=== PATIENT | male | born 1945 | race Caucasian/White ===

== ENCOUNTER → 2020-09-23 | Outpatient (CLI) | payer OTHER ==
[~2020-09-23] VITALS: Ht 180.3 cm; Wt 77.1 kg
[~2020-09-23] MED LIST: ASPIR-TRIN325 MG PO; FLOMAX0.4 MG PO; IRON240 M1 PO; LAMOTRIGINE200 MG PO; MULTI VITAMIN1 EACH PO; XANAX1 MG PO
--- NOTE | 2020-09-24 11:11 | P ---
[facility] [place] [address] PROCEDURE REPORT Name: NOAH LYONS Room #: REG [facility].#: [id number] Admission: 09/23/20 Attend Phys: Dougie Garnett Discharge: Date of : 43 Report #: [id number] THIS REPORT FOR: cc: Christos Cardenas MD, Brian G. MD McElhinney, Christian C. MD ~ DOC #: [id number] cc: Christos Dotson MD DATE OF SERVICE: 09/23/2020 PROCEDURES PERFORMED: Colonoscopy with polypectomies. HISTORY OF PRESENT ILLNESS: The patient is a 74-year-old male with a history of colon polyps 5 years ago, multiple polyps, he also has a family history of colon cancer and a son. Plan is for repeat colonoscopy. DESCRIPTION OF PROCEDURE: The risks and benefits of the procedure were explained to the patient, those risks including but not limited to bleeding, perforation and the risk of sedation. He understood these risks and gave informed consent. Sedation was given using propofol per anesthesia. Next, digital rectal exam was initially performed, which was normal. Next, using a standard Olympus colonoscope, the scope was placed in the patient's anus and advanced under direct vision to the cecum. The overall prep was good. In the cecum, there was a 5 mm sessile polyp. This was removed with cold forceps, otherwise normal. The ileocecal valve was normal. In the ascending colon, there were 2 polyps that were noted. The smallest was 4 mm and removed by cold forceps, the larger was 8 and removed by snare cautery. In the transverse colon, a 4 mm sessile polyp removed with cold forceps. Descending colon, two 3-4 mm sessile polyps, both removed with cold forceps, sigmoid colon, 4 mm sessile polyp removed with cold forceps also a few small scattered diverticula were noted in the sigmoid colon. No evidence of inflammation. The rectal mucosa was normal. On retroflexion, no abnormalities were noted. The scope was then withdrawn and the procedure terminated. The patient tolerated the procedure well. IMPRESSION: 1. Multiple small colonic polyps as described above. 2. Sigmoid diverticulosis. 3. Otherwise, normal colonoscopy. RECOMMENDATIONS: 1. Await biopsy results. 2. Repeat colonoscopy in [address] [address] PROCEDURE REPORT Name: NOAH LYONS Room #: REG NATY Lehman#: [id number] Admission: 09/23/20 Attend Phys: Dougie Garnett Discharge: Date of : 43 Report #: [id number] Thank you for allowing me to participate in his care. Dougie Dotson MD CCM/TRINH <ELECTRONICALLY SIGNED> By: Dougie Dotson MD 09/24/20 1111 0918 2244 Dougie Dotson MD /nt
--- NOTE | 2020-09-24 11:11 | P ---
[facility] [place] [address] PROCEDURE REPORT Name: NOAH LYONS Room #: REG [facility].#: [id number] Admission: 09/23/20 Attend Phys: Dougie Garnett Discharge: Date of : 43 Report #: [id number] THIS REPORT FOR: cc: Christos Cardenas MD,Dougie Au MD, MD ~ DOC #: [id number] cc: MD Dougie Ozuna MD DATE OF SERVICE: 09/23/2020 PROCEDURE PERFORMED: Upper endoscopy. HISTORY OF PRESENT ILLNESS: The patient is a 74-year-old male who presented today for a colonoscopy with history of polyps, family history of colon cancer. The patient also is complaining of heartburn symptoms. No previous history of an upper endoscopy. Plan is for EGD. DESCRIPTION OF PROCEDURE: The risks and benefits of the procedure were explained to the patient, those risks including but not limited to bleeding, perforation and the risk of sedation. He understood these risks and gave informed consent. Sedation was given using propofol per anesthesia. Next, using a standard Olympus upper endoscope, the scope was placed in the patient's mouth and advanced under direct vision through the esophagus, stomach and into the second portion of the duodenum. The upper and mid esophagus was normal; however, in the distal esophagus, severe grade D erosive esophagitis with possible Spain's esophagus was noted. Because of the esophagitis, I did not obtain biopsies today. Upon entering the stomach, a small hiatal hernia was noted. Overall, the gastric mucosa was normal. The pylorus was normal and patent. The duodenal bulb, first and second portion were all normal. The scope was then withdrawn and the procedure terminated. The patient tolerated the procedure well. IMPRESSION: 1. Severe grade D erosive esophagitis. 2. Suspect Spain's esophagus. 3. Hiatal hernia. 4. Otherwise, normal upper endoscopy. RECOMMENDATIONS: We will start daily PPI therapy long-term, have the patient return for repeat upper endoscopy in approximately 6-8 weeks' time. At that time, we will verify healing and obtain biopsies to rule out Spain's esophagus. Proceed with colonoscopy next day. Thank you for allowing me to participate in his care. [address] [address] PROCEDURE REPORT Name: NOAH LYONS Room #: REG NATY Lehman#: [id number] Admission: 09/23/20 Attend Phys: Dougie Garnett Discharge: Date of : 43 Report #: [id number] Dougie Dotson MD CCM/ALL <ELECTRONICALLY SIGNED> By: Dougie Dotson MD 09/24/20 1111 0840 2209 Dougie Dotson MD /kacie
--- NOTE | 2020-10-04 16:06 | PATH ---
[facility] [place] [address] [place] [address] PATHOLOGY RPT PROCEDURE Name: NNAMDI LYONS Shyla Room #: REG [facility]..#: [id number] Admission: 09/23/20 Date of : 43 Discharge: Report #: [id number] Path Case #: [id number] [facility] Accession Number: [id number] . 01 Material submitted: . PART A: colon - ASCENDING COLON POLYP BIOPSY X2. Modifiers: ascending, X2 PART B: cecum - CECAL POLYP BIOPSY PART C: colon - TRANSVERSE COLON POLYP BIOPSY. Modifiers: transverse PART D: colon - DESCENDING COLON POLYP BIOPSY X2. Modifiers: descending, X2 PART E: sigmoid colon - SIGMOID POLYP BIOPSY . 01 Clinical history: . COLONOSCOPY GERD,HX OF POLYPS,FAMILY HX OF COLON CANCER-SON ESOPHAGITIS,COLON POLYPS,DIVERTICULOSIS . 02 Diagnosis: A. Polyp x 2, ascending colon polyp, endoscopic biopsy: - Tubular adenoma identified in 2 fragments. - Negative for high-grade dysplasia. . B. Polyp, cecal polyp, endoscopic biopsy: - Tubular adenoma. - Negative for high-grade dysplasia. . C. Polyp, transverse colon polyp, endoscopic biopsy: - Tubular adenoma. - Negative for high-grade dysplasia. . D. Polyp x2, descending colon polyp, endoscopic biopsy: - Tubular adenoma identified in 2 fragments. - Negative for high-grade dysplasia. - Remainder of fragments showing hyperplastic changes and a lymphoid aggregate. . E. Polyp, sigmoid colon polyp, endoscopic biopsy: - Tubular adenoma. - Negative for high-grade dysplasia. . (IUV:datastage developer; 09/27/2020) MBR 09/27/2020 1337 Local . 02 Electronically signed: . Jenae Alcazar MD, Pathologist NPI- [id number] . 01 Gross description: . [address] [address] PATHOLOGY RPT PROCEDURE Name: NNAMDI LYONS Room #: REG CLI Dominik#: [id number] Admission: 09/23/20 Date of : 43 Discharge: Report #: [id number] Path Case #: [id number] A. Received in formalin labeled "Nnamdi Lyons, ascending colon polyp BX x2" are multiple fragments of reyes-brown soft tissue measuring in aggregate 2.0 x 0.3 x 0.1 cm. The specimen is submitted entirely in A1. . B. Received in formalin labeled "Nnamdi Lyons, cecal polyp BX" are 2 fragments of reyes-brown soft tissue measuring in aggregate 0.6 x 0.4 x 0.1 cm. The specimen is submitted entirely in B1. . C. Received in formalin labeled "Nnadmi Lyons, transverse colon polyp BX" is a fragment of reyes-brown soft tissue measuring 0.5 x 0.3 x 0.1 cm. The specimen is submitted entirely in C1. . D. Received in formalin labeled "Nnamdi Lyons, descending colon polyp biopsy x2" are multiple fragments of reyes-brown soft tissue measuring in aggregate 0.6 x 0.5 x 0.1 cm. The specimen is submitted entirely in D1. . E. Received in formalin labeled "Nnamdi Lyons, sigmoid polyp BX" are 2 fragments of reyes-brown soft tissue measuring in aggregate 0.5 x 0.3 x 0.1 cm. The specimen is submitted entirely in E1. ([facility]; 09/25/2020) [facility] 09/25/2020 1216 Local . 02 Pathologist provided ICD-10: D12.2, D12.0, D12.3, D12.4, D12.5 . 02 CPT . 369735, 763776, 086885, 858469, 699878 Specimen Comment: A courtesy copy of this report has been sent to [phone] Specimen Comment: [id number] Specimen Comment: Report sent to / DR GIBBS Specimen Comment: A duplicate report has been generated due to demographic updates. Performed at: 01 [facility] [address], [place], [place] [id number] MD Marques Panchal MD Phone: [phone] Performed at: [address] [id number] MD Jenae Alcazar MD Phone: [phone]
== END | disposition home or self-care (01) ==
LOC: GI 08:18
PROVIDERS: ATTEND Specialist
DX: Z12.11 Encounter for screening for malignant neoplasm of colon (principal); Z86.010 Personal history of colon polyps; Z80.0 Family history of malignant neoplasm of digestive organs; D12.2 Benign neoplasm of ascending colon; D12.3 Benign neoplasm of transverse colon; D12.4 Benign neoplasm of descending colon; D12.5 Benign neoplasm of sigmoid colon; D12.0 Benign neoplasm of cecum; K57.30 Diverticulosis of large intestine without perforation or abscess without bleeding; R12 Heartburn; K22.10 Ulcer of esophagus without bleeding; K44.9 Diaphragmatic hernia without obstruction or gangrene; D64.9 Anemia, unspecified; K21.9 Gastro-esophageal reflux disease without esophagitis; Z98.890 Other specified postprocedural states; Z79.899 Other long term (current) drug therapy; Z87.442 Personal history of urinary calculi; Z85.828 Personal history of other malignant neoplasm of skin; Z85.46 Personal history of malignant neoplasm of prostate; Z79.82 Long term (current) use of aspirin
CPT/HCPCS: 62110; 62900

== ENCOUNTER → 2020-11-04 | Outpatient (CLI) | payer OTHER ==
[~2020-11-04] VITALS: Ht 180.3 cm; Wt 72.6 kg
[~2020-11-04] MED LIST changes: +CARBIDOPA-LEVO1 EAC8 PO; +PRILOSEC OTC20 MG PO
--- NOTE | ~2020-11-04 | P ---
[facility] [place] [address] PROCEDURE REPORT Name: NOAH LYONS [id number] Admission: 11/04/20 Attend Phys: Dougie Garnett Discharge: Date of : 43 Report #: [id number] THIS REPORT FOR: cc: Christos Cardenas MD,Dougie uA MD, MD ~ cc: Christos Cardenas MD DATE OF SERVICE: 11/04/2020 PROCEDURE PERFORMED: Upper endoscopy with biopsies. HISTORY OF PRESENT ILLNESS: The patient is a 75-year-old male who underwent an upper endoscopy by myself on 09/23/2020. At that time was complaining of heartburn symptoms. No previous history of upper endoscopy. EGD that day showed severe grade D erosive esophagitis as well as a hiatal hernia. The patient was placed on daily PPI therapy. He now reports here for followup to verify healing and to rule out the possibility of Spain's esophagus. He denies any nausea, vomiting or dysphagia. DESCRIPTION OF PROCEDURE: The risks and benefits of the procedure were explained to the patient, those risks including but not limited to bleeding, perforation and the risk of sedation. He understood these risks and gave informed consent. Sedation was given using propofol per anesthesia. Next, using a standard Olympus upper endoscope, the scope was placed in the patient's mouth and advanced under direct vision through the esophagus, stomach and into the second portion of the duodenum. The upper and mid esophagus was normal. In the distal esophagus, the previous esophagitis has completely healed; however, there does appear to be approximately 4 cm segment of Spain's esophagus. Multiple biopsies were obtained. Upon entering the stomach, a small hiatal hernia was once again noted. Overall, the gastric mucosa was normal. The pylorus was normal and patent. The duodenal bulb, first and second portion were all normal. The scope was then withdrawn and the procedure terminated. The patient tolerated the procedure well. IMPRESSION: 1. 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 2. Small hiatal hernia. 3. Otherwise, normal upper endoscopy. RECOMMENDATIONS: 1. Await biopsy results. 2. Would recommend continuing daily PPI therapy long-term. [facility] [address] [place] [address] PROCEDURE REPORT Name: NOAH LYONS Shyla Room #: REG Rico Lehman#: [id number] Admission: 11/04/20 Attend Phys: Dougie Garnett Discharge: Date of : 43 Report #: [id number] Thank you for allowing me to participate in his care. By: [id number] Dougie Dotson MD /kacie
--- NOTE | 2020-11-08 15:08 | PATH ---
[facility] [address] [place] [address] PATHOLOGY RPT PROCEDURE Name: NNAMDI LYONS Room #: REG NATY Ramos.#: [id number] Admission: 11/04/20 Date of : 43 Discharge: Report #: [id number] Path Case #: [id number] [facility] Accession Number: [id number] . 01 Material submitted: . esophagus - BIOPSY DISTAL ESOPHAGUS R/O FLANAGAN'S. Modifiers: distal . 01 Clinical history: . EGD/HEARTBURN/ESOPHAGITIS . 02 Diagnosis: Gastroesophageal mucosa, distal esophagus, rule out Flanagan's, endoscopic biopsy: - Specialized columnar epithelium (gastric cardia-type mucosa) with intestinal metaplasia, consistent with Flanagan's metaplasia. - Negative for dysplasia or malignancy. - Focal squamous mucosa with mild esophagitis. (IUV:pit; 11/07/2020) QTP 11/07/2020 1701 Local . 02 Comment: The above diagnosis of Flanagan's esophagus is made due to the presence of intestinal metaplasia and with the assumption that the biopsies were obtained from the columnar mucosa in the distal esophagus located at least 1 cm proximal to the top of the gastric folds as per the 2016 ACG guidelines. (IUV:pit; 11/07/2020) . 02 Electronically signed: . Jenae Alcazar MD, Pathologist NPI- [id number] . 01 Gross description: . The specimen is received in formalin, labeled "Nnamdi Alcantarbradleyblanca, biopsy distal esophagus". Received are five segments of pale reyes tissue ranging in size from 0.2-0.4 cm in maximum dimensions. The specimen is submitted entirely in cassette A1. (CAA; 11/05/2020) QAC/QAC 11/05/2020 1745 Local . 02 Pathologist provided ICD-10: K22.70 . 02 CPT . 795436 Specimen Comment: A courtesy copy of this report has been sent to [phone], [phone], [place] [address] PATHOLOGY RPT PROCEDURE Name: ELOYNNAMDI Mansfield Room #: REG NATY Lehman#: [id number] Admission: 11/04/20 Date of : 43 Discharge: Report #: [id number] Path Case #: [id number] Specimen Comment: [id number] Specimen Comment: Report sent to / DR GIBBS Specimen Comment: A duplicate report has been generated due to demographic updates. Performed at: [address], [place], [place] [id number] MD Marques Panchal MD Phone: [phone] Performed at: [address] [id number] MD Jenae Alcazar MD Phone: [phone]
== END | disposition home or self-care (01) ==
LOC: GI
PROVIDERS: ATTEND Specialist
DX: R12 Heartburn (principal); K22.70 Barrett's esophagus without dysplasia; K21.00 Gastro-esophageal reflux disease with esophagitis, without bleeding; K44.9 Diaphragmatic hernia without obstruction or gangrene; G20 Parkinson's disease; Z85.46 Personal history of malignant neoplasm of prostate; Z85.51 Personal history of malignant neoplasm of bladder; Z85.828 Personal history of other malignant neoplasm of skin; Z98.890 Other specified postprocedural states; Z79.899 Other long term (current) drug therapy; Z87.442 Personal history of urinary calculi
CPT/HCPCS: 62110; 62900